=== PATIENT | male | born 1935 | race Caucasian/White ===

== ENCOUNTER 2022-08-08 17:36 | Inpatient (IN) ==
[~2022-08-08 17:36] MED LIST: NS 0.45% 1000 ml BAG 1,000 ML IV SCH
[2022-08-08] MEDS ORDERED: Ondansetron 4 mg VIAL 2 MG/ML 2 ml VIAL IV PRN (17:49)
[2022-08-08] MEDS ORDERED: Piperacillin/Tazobac ADVAN 3.375 GM in NS 0.9% 100 ml BAG 100 ML IV ONE (17:52)
[2022-08-08 17:56] LABS: ABS Lymphocytes 0.1 10^3/ul (1.0-4.8); ABS Monocytes 0.1 10^3/ul (0-0.8); ABS Neutrophils 1.6 10^3/ul (1.5-7.7); Eosinophil % 0.1 %; Hematocrit 34 % (42-52); Hemoglobin 10.5 g/dL (14.0-18.0); Lymphocyte % 5.1 %; Mean Corpuscular HGB Conc 31 g/dL (31-36); Mean Corpuscular Hemoglobin 27 pg (27-31); Mean Corpuscular Volume 85 fL (80-94); Mean Platelet Volume 11.5 fL (7.4-10.4); Nucleated Red Blood Cells % 0.2; Platelet Count 34 10^3/uL (150-450); Red Blood Count 3.94 10^6 /uL (4.18-5.48); Red Cell Distribution Width 17 % (10-15); White Blood Count 1.9 10^3/uL (3.5-10.8)
[2022-08-08] MEDS ORDERED: Zosyn per Pharmacy NOTE FOLLOW UP SCH (18:00)
[2022-08-08] MEDS ORDERED: Lactated Ringers 1000 ml BAG 1,000 ML IV SCH (18:00)
[2022-08-08 18:04] LABS: Albumin/Globulin Ratio 0.6 (1-3); Calcium 7.2 mg/dL (8.6-10.3); Creatinine, Serum 5.92 mg/dL (0.67-1.17); Globulin 3.6 g/dL (2-4); Magnesium 2.1 mg/dL (1.9-2.7); Potassium 4.6 mmol/L (3.5-5.0); Total Bilirubin 1.9 mg/dL (0.2-1.0); Total Protein 5.6 g/dL (6.4-8.9); eGFR CKD-EPI 8.6 (>60)
[2022-08-08] MEDS: Norepinephrine 16MCG/ML BAGD5W 4,000 MCG/250 ML BAG IV SCH ×2 (18:18→21:59)
[2022-08-08] MEDS ORDERED: NS 0.45% 1000 ml BAG 1,000 ML IV SCH ×3 (18:38→21:00)
[2022-08-08 19:08] LABS: Phosphorus 5.9 mg/dL (2.5-5.0)
[2022-08-08 19:18] LABS: PSA Screening Total 0.24 ng/mL (0-4.000)
[2022-08-08 20:46] LABS: Urine Appearance Cloudy; Urine Bilirubin Negative (Negative); Urine Blood 2+ (Negative); Urine Color Amber; Urine Glucose Negative (Negative); Urine Ketones Negative (Negative); Urine Nitrite Negative (Negative); Urine Protein Negative (Negative); Urine Specific Gravity 1.014 (1.002-1.030); Urine Urobilinogen Negative (Negative)
[2022-08-08 21:13] LABS: Urine Bacteria 1+ (Absent); Urine Red Blood Cell 3+(>10/hpf) (Absent); Urine Squamous Epithelial Cell Present (Absent); Urine White Blood Cell 2+(11-20/hpf) (Absent); Urine Yeast Present (Absent)
[2022-08-08] MEDS: Pantoprazole VIAL 40 MG VIAL IV SCH (21:43)
[2022-08-08] MEDS ORDERED: Heparin 5000 UNITS/ML 1 mL VIAL SUBCUT SCH (22:00)
[2022-08-08] MEDS ORDERED: Anidulafungin 200 MG in NS 0.9% 250 ml 200 ML IVPB ONE (22:00)
[2022-08-08 22:29] LABS: Folate 10.49 ng/mL (5.90-24.80)
[2022-08-08] MEDS: ZOSYN 3.375 GM Q12H per EXTENDED INFUSION IV SCH (22:57)
[2022-08-08 23:03] LABS: ABS Lymphocytes 0.2 10^3/ul (1.0-4.8); ABS Monocytes 0.1 10^3/ul (0-0.8); ABS Neutrophils 2.6 10^3/ul (1.5-7.7); Eosinophil % 0.1 %; Hematocrit 33 % (42-52); Hemoglobin 10.3 g/dL (14.0-18.0); Lymphocyte % 6.4 %; Mean Corpuscular HGB Conc 31 g/dL (31-36); Mean Corpuscular Hemoglobin 26 pg (27-31); Mean Corpuscular Volume 84 fL (80-94); Mean Platelet Volume 9.2 fL (7.4-10.4); Nucleated Red Blood Cells % 0.1; Platelet Count 37 10^3/uL (150-450); Red Blood Count 3.95 10^6 /uL (4.18-5.48); Red Cell Distribution Width 17 % (10-15)
[2022-08-08 23:21] LABS: Albumin 1.9 g/dL (3.2-5.2); Albumin/Globulin Ratio 0.5 (1-3); Calcium 6.8 mg/dL (8.6-10.3); Creatinine, Serum 5.61 mg/dL (0.67-1.17); Globulin 3.5 g/dL (2-4); Potassium 4.5 mmol/L (3.5-5.0); Total Bilirubin 2.1 mg/dL (0.2-1.0); Total Protein 5.4 g/dL (6.4-8.9); eGFR CKD-EPI 9.2 (>60)
[2022-08-08 23:45] LABS: INR 1.64 (0.88-1.18)
[2022-08-09] MEDS: NS 0.9% 1000 ml BAG 1,000 ML IV SCH ×4 (00:18→16:25)
[2022-08-09] MEDS: Norepinephrine 16MCG/ML BAGD5W 4,000 MCG/250 ML BAG IV SCH ×5 (01:34→21:07)
[2022-08-09 05:21] LABS: ABS Lymphocytes 0.1 10^3/ul (1.0-4.8); ABS Monocytes 0.1 10^3/ul (0-0.8); ABS Neutrophils 2.4 10^3/ul (1.5-7.7); Eosinophil % 0.2 %; Hematocrit 33 % (42-52); Hemoglobin 10.3 g/dL (14.0-18.0); Lymphocyte % 4.7 %; Mean Corpuscular HGB Conc 31 g/dL (31-36); Mean Corpuscular Hemoglobin 27 pg (27-31); Mean Corpuscular Volume 84 fL (80-94); Mean Platelet Volume 9.9 fL (7.4-10.4); Nucleated Red Blood Cells % 0.1; Platelet Count 37 10^3/uL (150-450); Red Cell Distribution Width 17 % (10-15); White Blood Count 2.6 10^3/uL (3.5-10.8)
[2022-08-09 06:09] LABS: ALT 25 U/L (7-52); AST 28 U/L (13-39); Albumin 1.8 g/dL (3.2-5.2); Albumin/Globulin Ratio 0.5 (1-3); Alkaline Phosphatase 411 U/L (35-149); Anion Gap 14 mmol/L (2-11); Blood Urea Nitrogen 114 mg/dL (6-24); CO2 Carbon Dioxide 18 mmol/L (22-32); Calcium 6.5 mg/dL (8.6-10.3); Chloride 111 mmol/L (101-111); Creatinine, Serum 5.57 mg/dL (0.67-1.17); Globulin 3.4 g/dL (2-4); Glucose 198 mg/dL (70-100); Magnesium 1.9 mg/dL (1.9-2.7); Phosphorus 5.5 mg/dL (2.5-5.0); Potassium 4.4 mmol/L (3.5-5.0); Sodium 143 mmol/L (135-145); Total Protein 5.2 g/dL (6.4-8.9); eGFR CKD-EPI 9.3 (>60)
[2022-08-09] MEDS ORDERED: Sulfur Hexaflouride MICROSPHR 25 MG VIAL ONE (08:08)
[2022-08-09] MEDS: Pantoprazole VIAL 40 MG VIAL IV SCH (08:10)
[2022-08-09 10:28] LABS: % Iron Saturation 33 % (15-55); Iron 35 ug/dL (50-212); Total Iron Binding Capacity 105 mcg/dL (250-450); Transferrin < 75 mg/dL (203-362); Unsaturated Iron Binding 70 ug/dL
[2022-08-09] MEDS: ZOSYN 3.375 GM Q12H per EXTENDED INFUSION IV SCH ×2 (10:38→21:08)
[2022-08-09 11:30] LABS: Hematocrit 31 % (42-52); Hemoglobin 9.8 g/dL (14.0-18.0); Mean Corpuscular HGB Conc 32 g/dL (31-36); Mean Corpuscular Hemoglobin 27 pg (27-31); Mean Corpuscular Volume 83 fL (80-94); Red Blood Count 3.69 10^6 /uL (4.18-5.48); Red Cell Distribution Width 17 % (10-15); White Blood Count 1.7 10^3/uL (3.5-10.8)
[2022-08-09 11:31] LABS: Mean Platelet Volume 9.9 fL (7.4-10.4); Platelet Count 25 10^3/uL (150-450)
[2022-08-09 12:05] LABS: ABS Lymphocytes 0.1 10^3/ul (1.0-4.8); ABS Monocytes 0.1 10^3/ul (0-0.8); ABS Neutrophils 1.5 10^3/ul (1.5-7.7); Eosinophil % 0.3 %; Lymphocyte % 4.4 %; Nucleated Red Blood Cells % 0.3
[2022-08-09 12:09] LABS: Albumin 1.8 g/dL (3.2-5.2); Albumin/Globulin Ratio 0.6 (1-3); Calcium 6.6 mg/dL (8.6-10.3); Creatinine, Serum 5.67 mg/dL (0.67-1.17); Globulin 3.2 g/dL (2-4); Magnesium 1.9 mg/dL (1.9-2.7); Phosphorus 5.2 mg/dL (2.5-5.0); Potassium 4.3 mmol/L (3.5-5.0); Total Bilirubin 2.1 mg/dL (0.2-1.0); eGFR CKD-EPI 9.1 (>60)
[2022-08-09] MEDS ORDERED: Polyethylene Glycol 3350 17 GM PACKET PO SCH (15:00)
[2022-08-09 16:30] LABS: C Reactive Protein 203.5 mg/L (<8.01)
[2022-08-09 16:33] LABS: Activated Partial Thrombo Time 42.1 seconds (26.0-38.0); INR 1.87 (0.88-1.18)
[2022-08-09] MEDS: Acetaminophen IV 1 GM/100ML 1,000 MG/100 ML BAG IV PRN (17:27)
[2022-08-09] MEDS ORDERED: NS 0.9% 1000 ml BAG 1,000 ML IV SCH (19:49)
[2022-08-09] MEDS ORDERED: Anidulafungin 100 MG in NS 0.9% 100 ML IVPB SCH (22:00)
[2022-08-09] MEDS ORDERED: ANIDULAFUNGIN IVPB SCH (22:00)
[2022-08-09] MEDS ORDERED: NS 0.9% IVPB SCH (22:00)
[2022-08-10] MEDS: Norepinephrine 16MCG/ML BAGD5W 4,000 MCG/250 ML BAG IV SCH ×8 (00:21→22:08)
[2022-08-10] MEDS: NS 0.9% 1000 ml BAG 1,000 ML IV SCH ×2 (00:21→08:41)
[2022-08-10] MEDS: Acetaminophen IV 1 GM/100ML 1,000 MG/100 ML BAG IV PRN (05:24)
[2022-08-10 05:26] LABS: ABS Lymphocytes 0.1 10^3/ul (1.0-4.8); ABS Monocytes 0.1 10^3/ul (0-0.8); Eosinophil % 0.2 %; Hematocrit 30 % (42-52); Hemoglobin 9.5 g/dL (14.0-18.0); Lymphocyte % 5.5 %; Mean Corpuscular HGB Conc 31 g/dL (31-36); Mean Corpuscular Hemoglobin 26 pg (27-31); Mean Corpuscular Volume 84 fL (80-94); Mean Platelet Volume 10.6 fL (7.4-10.4); Nucleated Red Blood Cells % 0.1; Platelet Count 25 10^3/uL (150-450); Red Blood Count 3.63 10^6 /uL (4.18-5.48); Red Cell Distribution Width 17 % (10-15); White Blood Count 2.2 10^3/uL (3.5-10.8)
[2022-08-10 06:00] LABS: Albumin 1.7 g/dL (3.2-5.2); Albumin/Globulin Ratio 0.5 (1-3); Calcium 6.5 mg/dL (8.6-10.3); Creatinine, Serum 5.79 mg/dL (0.67-1.17); Globulin 3.3 g/dL (2-4); Magnesium 1.8 mg/dL (1.9-2.7); Phosphorus 4.6 mg/dL (2.5-5.0); Potassium 3.9 mmol/L (3.5-5.0); Total Bilirubin 2.2 mg/dL (0.2-1.0); eGFR CKD-EPI 8.9 (>60)
[2022-08-10] MEDS ORDERED: Magnesium Sulfate 2 gm BAG 2 GM/50 ML BAG IVPB ONE (06:10)
[2022-08-10 06:45] LABS: Venous Bicarbonate HCO3 15.8 mmol/L (24-28)
[2022-08-10] MEDS: Pantoprazole VIAL 40 MG VIAL IV SCH (08:42)
[2022-08-10] MEDS ORDERED: Midazolam 5 mg/5 ml VIAL 1 mg/ml 5 ml VIAL (5 mg) ONE (11:30)
[2022-08-10] MEDS ORDERED: Midazolam 2 mg/2 ml VIAL 1 mg/ml 2 ml VIAL (2 mg) IV SLOW PU ONE ×2 (13:23)
[2022-08-11] MEDS: Norepinephrine 16MCG/ML BAGD5W 4,000 MCG/250 ML BAG IV SCH ×6 (02:24→21:10)
[2022-08-11 04:57] LABS: Hematocrit 31 % (42-52); Mean Corpuscular HGB Conc 32 g/dL (31-36); Mean Corpuscular Hemoglobin 27 pg (27-31); Mean Corpuscular Volume 83 fL (80-94); Mean Platelet Volume 9.7 fL (7.4-10.4); Platelet Count 30 10^3/uL (150-450); Red Blood Count 3.78 10^6 /uL (4.18-5.48); Red Cell Distribution Width 17 % (10-15); White Blood Count 1.7 10^3/uL (3.5-10.8)
[2022-08-11 05:26] LABS: ALT 26 U/L (7-52); AST 34 U/L (13-39); Alkaline Phosphatase 326 U/L (35-149); Anion Gap 8 mmol/L (2-11); Blood Urea Nitrogen 69 mg/dL (6-24); CO2 Carbon Dioxide 20 mmol/L (22-32); Calcium 6.6 mg/dL (8.6-10.3); Chloride 106 mmol/L (101-111); Glucose 122 mg/dL (70-100); Magnesium 1.8 mg/dL (1.9-2.7); Phosphorus 3.7 mg/dL (2.5-5.0); Potassium 3.7 mmol/L (3.5-5.0); Sodium 134 mmol/L (135-145); Total Protein 4.8 g/dL (6.4-8.9); eGFR CKD-EPI 12.3 (>60)
[2022-08-11 05:27] LABS: Albumin < 1.7 g/dL (3.2-5.2); Albumin/Globulin Ratio 0.5 (1-3); Globulin 3.1 g/dL (2-4)
[2022-08-11 05:51] LABS: ABS Lymphocytes 0.1 10^3/ul (1.0-4.8); ABS Monocytes 0.1 10^3/ul (0-0.8); ABS Neutrophils 1.5 10^3/ul (1.5-7.7); Eosinophil % 0.3 %; Lymphocyte % 7.4 %; Nucleated Red Blood Cells % 0.6
[2022-08-11 10:25] LABS: Hepatitis B Surface Antigen Nonreactive (Nonreactive)
[2022-08-11 10:30] LABS: Hepatitis B Core IgM Nonreactive (Nonreactive)
[2022-08-11 10:35] LABS: Creatine Kinase 10 U/L (10-223)
[2022-08-11 10:43] LABS: Hepatitis B Surface Ab Not Immune (Immune)
[2022-08-11] MEDS: Pantoprazole VIAL 40 MG VIAL IV SCH (11:03)
[2022-08-11] MEDS: Heparin 1,000 UNIT/ML 10 ml (10,000 UNITS) CATHLAB/DIALYSIS DIALYSIS SCH (11:13)
[2022-08-11 11:54] LABS: Corrected Retic Count 0.6 % (0.5-1.5); Hematocrit for Retic CNT 31 % (42-52); Immature Retic Fraction 0.37; RBC Retic Count 3.73 10^6/uL (4.18-5.48)
[2022-08-11 12:25] LABS: Activated Partial Thrombo Time 49.8 seconds (26.0-38.0); INR 2.53 (0.88-1.18)
[2022-08-11] MEDS: DOXYcycline 100 MG in NS 0.9% 250 ml 250 ML IVPB SCH (13:11)
[2022-08-11 15:15] LABS: RBC Parasite Smear No Parasites Seen (No Parasite)
[2022-08-12] MEDS: Acetaminophen IV 1 GM/100ML 1,000 MG/100 ML BAG IV PRN ×2 (00:55→12:54)
[2022-08-12] MEDS: DOXYcycline 100 MG in NS 0.9% 250 ml 250 ML IVPB SCH ×3 (01:13→23:33)
[2022-08-12] MEDS: Norepinephrine 16MCG/ML BAGD5W 4,000 MCG/250 ML BAG IV SCH ×4 (03:57→20:06)
[2022-08-12 04:23] LABS: Hematocrit 30 % (42-52); Hemoglobin 9.8 g/dL (14.0-18.0); Mean Corpuscular HGB Conc 32 g/dL (31-36); Mean Corpuscular Hemoglobin 27 pg (27-31); Mean Corpuscular Volume 82 fL (80-94); Mean Platelet Volume 9.8 fL (7.4-10.4); Platelet Count 32 10^3/uL (150-450); Red Blood Count 3.71 10^6 /uL (4.18-5.48); Red Cell Distribution Width 17 % (10-15); White Blood Count 2.4 10^3/uL (3.5-10.8)
[2022-08-12 04:52] LABS: ALT 30 U/L (7-52); AST 40 U/L (13-39); Alkaline Phosphatase 426 U/L (35-149); Anion Gap 6 mmol/L (2-11); Blood Urea Nitrogen 47 mg/dL (6-24); CO2 Carbon Dioxide 23 mmol/L (22-32); Calcium 6.6 mg/dL (8.6-10.3); Chloride 102 mmol/L (101-111); Creatinine, Serum 3.77 mg/dL (0.67-1.17); Glucose 184 mg/dL (70-100); Magnesium 1.7 mg/dL (1.9-2.7); Potassium 3.7 mmol/L (3.5-5.0); Sodium 131 mmol/L (135-145); Total Protein 4.8 g/dL (6.4-8.9); eGFR CKD-EPI 14.8 (>60)
[2022-08-12 05:00] LABS: Albumin < 1.7 g/dL (3.2-5.2); Albumin/Globulin Ratio 0.5 (1-3); Globulin 3.1 g/dL (2-4)
[2022-08-12] MEDS ORDERED: Magnesium Sulfate IV 1GM/100ML 1 GM/100 ML BAG IV ONE (05:12)
[2022-08-12] MEDS ORDERED: KCL 20 MEQ/100 ML IVPREMIX 20 MEQ/100 ML BAG IV ONE (05:12)
[2022-08-12] MEDS ORDERED: Magnesium Sulfate IV 3 GM in NS 0.9% 100 ml BAG 100 ML IVPB ONE (09:00)
[2022-08-12] MEDS: Heparin 1,000 UNIT/ML 10 ml (10,000 UNITS) CATHLAB/DIALYSIS DIALYSIS SCH (09:16)
[2022-08-12] MEDS: Pantoprazole VIAL 40 MG VIAL IV SCH (09:31)
[2022-08-12 15:53] LABS: Hepatitis Be Antibody Negative (Negative)
[2022-08-12 16:56] LABS: NT-Pro B-Type Natriuretic Pep 22852 pg/mL (<=540)
[2022-08-13] MEDS: Norepinephrine 16MCG/ML BAGD5W 4,000 MCG/250 ML BAG IV SCH ×2 (00:39→07:36)
[2022-08-13] MEDS: Acetaminophen IV 1 GM/100ML 1,000 MG/100 ML BAG IV PRN (02:43)
[2022-08-13 04:39] LABS: Hematocrit 33 % (42-52); Hemoglobin 10.3 g/dL (14.0-18.0); Mean Corpuscular HGB Conc 32 g/dL (31-36); Mean Corpuscular Hemoglobin 26 pg (27-31); Mean Corpuscular Volume 82 fL (80-94); Mean Platelet Volume 10.2 fL (7.4-10.4); Platelet Count 25 10^3/uL (150-450); Red Blood Count 3.97 10^6 /uL (4.18-5.48); Red Cell Distribution Width 17 % (10-15); White Blood Count 2.4 10^3/uL (3.5-10.8)
[2022-08-13 05:11] LABS: Calcium 6.8 mg/dL (8.6-10.3); Creatinine, Serum 4.46 mg/dL (0.67-1.17); Magnesium 2.4 mg/dL (1.9-2.7); Potassium 4.1 mmol/L (3.5-5.0); eGFR CKD-EPI 12.1 (>60)
[2022-08-13] MEDS: Pantoprazole VIAL 40 MG VIAL IV SCH (10:36)
[2022-08-13] MEDS: Heparin 1,000 UNIT/ML 10 ml (10,000 UNITS) CATHLAB/DIALYSIS DIALYSIS SCH (10:36)
[2022-08-13 12:06] VITALS: BP 108/60
[2022-08-13] MEDS ORDERED: Lorazepam PYXIS KEY ONE (12:28)
[2022-08-13] MEDS ORDERED: Lorazepam PYXIS KEY PRN (12:29)
[2022-08-13] MEDS ORDERED: LORazepam 2 mg VIAL 1 ml ONE (12:29)
[2022-08-13] MEDS ORDERED: Morphine PCA ADULT 5 MG/ML 30 ML PCA SCH (12:30)
[2022-08-13] MEDS: LORazepam 2 mg VIAL 1 ml IV PUSH SCH ×7 (12:31→23:32)
[2022-08-13] MEDS ORDERED: Morphine 10 MG/ML VIAL (1 ml) IV ONE (13:00)
[2022-08-13] MEDS ORDERED: Morphine 4 MG/ML VIAL (1 ml) ONE (17:39)
[2022-08-13 17:54] LABS: Anaplasma phagocytophilum Negative (Negative); B. miyamotoi PCR, B Negative (Negative); Babesia divergens/MO-1 Negative (Negative); Babesia ducani Negative (Negative); Ehrlichia chaffeensis Negative (Negative); Ehrlichia ewingii/canis Negative (Negative); Ehrlichia muris eauclairensis Negative (Negative)
[2022-08-13] MEDS: Morphine 4 MG/ML VIAL (1 ml) IV PRN ×2 (18:09→23:32)
[2022-08-14] MEDS: LORazepam 2 mg VIAL 1 ml IV PUSH SCH ×5 (01:46→05:06)
[2022-08-14] MEDS: Morphine 4 MG/ML VIAL (1 ml) IV PRN (04:07)
[2022-08-14 12:00] LABS: Cytomegalovirus IgG Antibody Negative (Negative)
[2022-08-15 18:06] LABS: Parvovirus (B19) IgG Antibody Positive (Negative); Parvovirus (B19) IgM Antibody Negative (Negative)
== END 2022-08-14 07:00 | disposition expired | DRG 871 ==
LOC: ICU 17:36
PROVIDERS: ADMIT Internal Medicine Critical Care Medicine; ATTEND Internal Medicine Critical Care Medicine